=== PATIENT | male | born 1980 | race Caucasian/White ===

== ENCOUNTER 2021-03-19 18:53 | Emergency (ER) | payer SELFPAY ==
[2021-03-19 19:06] VITALS: BP 194/121; PULSE 90; RESP 16; TEMP 36.5; O2SAT 98; BMI 32.4
[2021-03-19 20:41] VITALS: BP 201/111
--- NOTE | 2021-03-19 21:38 | ED.GENADULT ---
HPI - General Adult General Chief complaint: General Medical Stated complaint: high bp Time Seen by Provider: 03/19/21 21:37 Source: patient Mode of arrival: ambulatory Limitations: no limitations History of Present Illness HPI narrative: 40-year-old male came in for evaluation of elevated blood pressure. This is a 40-year-old male with history of hypertension taking lisinopril 20 mg once daily. Hydrochlorothiazide 12.5 mg was just added to the patient medication 3 days ago, patient has a new machine at home which read high blood pressure multiple times today, patient is compliant with his medication. Patient has no headache, no blurry vision, no stiff neck, no chest pain, no shortness of breath, no abdominal pain (feels gassy). Patient otherwise has no complaint. Related Data Previous Rx's Medication Instructions Recorded clonidine HCl 0.2 mg tablet 0.2 mg PO BEDTIME #10 tab 03/20/21 Allergies Allergy/AdvReac Type Severity Reaction Status Date / Time No Known Allergies Allergy Unverified 03/17/20 16:19 Review of Systems Review of Systems: All other systems are reviewed and are negative Constitutional: Reports as per HPI and Reports no additional constitutional complaints Eyes: Reports as per HPI and Reports no additional eye complaints Reports system reviewed and no additional complaints, except as documented Cardiovascular: Reports as per HPI and Reports no additional cardiovascular complaints Respiratory: Reports as per HPI and Reports no additional respiratory complaints Gastrointestinal: Reports as per HPI and Reports no additional gastrointestinal complaints Genitourinary: Reports no additional female genitourinary complaints Musculoskeletal: Reports no additional musculoskeletal complaints Skin/Breast: Reports system reviewed and no additional complaints, except as docu Psychiatric: Reports no additional psychiatric complaints Endocrine: Reports no additional endocrine complaints Hematologic/Lymphatic: Reports no additional hematologic/lymphatic complaints Allergic/Immunologic: Reports no additional allergic/immunologic complaints Reports system reviewed and no additional complaints, except as documented and Reports Abnormal speech present [facility] Past Medical History Medical History Hypertension Social History Social History Advance Directives: No Advance Directives Information Provided: No Physical Exam Vital Signs: Vital Signs: Last Vital Signs Temp 97.7 F 03/19/21 19:06 Pulse 74 03/20/21 01:19 Resp 18 03/20/21 01:19 BP 157/95 H 03/20/21 01:19 Pulse Ox 97 03/20/21 01:19 Body Mass Index 32.4 Vital signs have been reviewed as appeared to be correct. Blood pressure elevated. Heart rate normal. Respiration rate normal. Temperature normal. Oxygen saturation normal. Appearance: Alert. Oriented X3. No acute distress. Head: Normal external exam. Normocephalic. Atraumatic. No Milligan signs noted. No raccoon eyes noted Eyes: PERRLA. EOMI. Conjunctiva and sclera normal. Eyelids normal. ENT: TM's Normal. Pharynx normal. Uvula midline. Moist mucous membranes. No trismus noted. No drooling noted. No muffled voice noted. Neck: Normal inspection. Neck supple. FROM. No adenopathy. Thyroid Normal. No meningeal signs. No neck mass noted. CVS: Normal heart rate and rhythm. Heart sound normal. No murmurs noted. Pulses normal throughout. Respiratory: No respiratory distress. Painless inspiration. Breath sounds normal. No wheezes/rales/rhonchi noted. Chest nontender. No accessory muscle usage noted or decreased air movement noted. Abdomen: Soft and nontender. Bowel sounds normal in all 4 quadrants. No distention noted. No organomegaly noted. No visible injury noted. Back: No CVA tenderness. Full range of motion noted. Skin: Skin warm and dry. Normal skin color. Normal skin turgor. No rashes/lesions/lacerations noted. Extremities: No lower extremity edema. Extremities exhibit normal range of motion. Extremities nontender. Neuro: Oriented X 3. Cranial nerve exam: II-XII are grossly intact No motor deficit. No sensory deficit. Reflexes normal. Course Course Course Narrative: This is a 40-year-old male with history of hypertension, patient is taking lisinopril 20 mg once daily and was just started on hydrochlorothiazide 12.5 mg 3 days ago, patient came in with elevated blood pressure with no symptoms. Patient was given amlodipine in the emergency department which did not work then patient was given clonidine 0.3 mg and another 20 mg of lisinopril now blood pressure is 157/95. Patient remained asymptomatic. Will discharge the patient on clonidine and increase his lisinopril to 40 mg and follow-up with PCP. Discharge Plan Discharge Clinical Impression: Hypertension Qualifiers: Hypertension type: unspecified Qualified Code(s): I10 - Essential (primary) hypertension Patient Disposition: Home, Self-Care Instructions: Hypertension (ED) Additional Instructions: Stop taking hydrochlorothiazide (the new medicine). Increase your lisinopril from 20 mg to 40 mg (take 2 pills a day). Will add clonidine to be taking once a day. Seek immediate medical attention for severe headache or chest pain of blurry vision otherwise follow-up with your PCP. Prescriptions: New clonidine HCl 0.2 mg tablet 0.2 mg PO BEDTIME Qty: 10 RF: 0 Referrals: Roger Lopez MD [Primary Care Provider] - 2 days
[2021-03-19 21:43] VITALS: BP 131/110; PULSE 78
[2021-03-19] MEDS: amLODIPine Besylate 5 MG TABLET 10 MG PO (21:43)
[2021-03-19 22:22] VITALS: BP 194/112
[2021-03-19 23:41] VITALS: BP 190/119; PULSE 82; RESP 18; O2SAT 98
[2021-03-20 00:05] VITALS: BP 190/105; PULSE 70
[2021-03-20] MEDS: lisinopriL 20 MG TABLET PO (00:05)
[2021-03-20] MEDS: cloNIDine HCL 0.2 MG TABLET PO (00:05)
[2021-03-20 00:06] VITALS: BP 190/105; PULSE 70; RESP 16; O2SAT 97
[2021-03-20 00:20] VITALS: BP 189/105; PULSE 84; RESP 16; O2SAT 97
[2021-03-20 00:38] VITALS: BP 197/110; PULSE 84; RESP 16; O2SAT 97
[2021-03-20 00:59] VITALS: BP 170/92; PULSE 74; RESP 18; O2SAT 97
[2021-03-20 01:19] VITALS: BP 157/95; PULSE 74; RESP 18; O2SAT 97
== END 2021-03-20 02:11 | disposition home or self-care (01) ==
PROVIDERS: Emergency Provider Emergency Medicine; PCP Internal Medicine
DX: I10 Essential (primary) hypertension (principal); Z79.899 Other long term (current) drug therapy
CPT/HCPCS: 99283; 99284